=== PATIENT | female | born 1955 | race Caucasian/White ===

== ENCOUNTER 2018-09-27 15:43 | Inpatient (IN) | payer MEDICARE, OTHER ==
[~2018-09-27] VITALS: Ht 167.6 cm; Wt 108.9 kg
[2018-09-27] MEDS ORDERED: aspirin 81mg tab.chew PO ONE (16:20)
[2018-09-27 16:25] LABS: BASOPHILS # (AUTO) 0.1 X10'3 (0-0.2); EOSINOPHILS # (AUTO) 0.2 X10'3 (0-0.9); EOSINOPHILS % (AUTO) 1.9 % (0-6); HEMATOCRIT 45.1 % (35.0-45.0); HEMOGLOBIN 15.5 g/dl (12.0-16.0); LYMPHOCYTES # (AUTO) 1.1 X10'3 (1.1-4.8); LYMPHOCYTES % (AUTO) 13.9 % (21-51); MEAN CORPUSCULAR HEMOGLOBIN 30.2 PG (27.0-31.0); MEAN CORPUSCULAR HGB CONC 34.3 g/dL (33.0-36.5); MEAN CORPUSCULAR VOLUME 88.2 FL (78-98); MEAN PLATELET VOLUME 6.3 FL (7.4-10.4); MONOCYTES # (AUTO) 0.6 X10'3 (0-0.9); MONOCYTES % (AUTO) 7.9 % (2-12); NEUTROPHILS % (AUTO) 75.3 % (42-75); PLATELET COUNT 362 X10'3 (140-440); RED BLOOD COUNT 5.12 X10'6 (4.20-5.60); RED CELL DISTRIBUTION WIDTH 13.3 % (11.5-14.5)
[2018-09-27] MEDS ORDERED: nitroGLYCERIN 0.4mg SUBLingual tab SL PRN ×3 (16:25→18:45)
--- NOTE | 2018-09-27 16:29 | NUR ---
pt stated hasnt taken synthroid or depression meds in the last few day and states "amanda been more focused on my heart medications lately"
[2018-09-27 16:42] LABS: ALANINE AMINOTRANSFERASE 22 U/L (12-78); ALBUMIN 3.5 G/DL (3.4-5.0); ALBUMIN/GLOBULIN RATIO 0.9 (1.1-1.5); ALKALINE PHOSPHATASE 48 IU/L (46-116); ANION GAP 8 (8-16); ASPARTATE AMINO TRANSFERASE 12 U/L (10-37); BILIRUBIN,TOTAL 0.4 MG/DL (0.1-1.0); BLOOD UREA NITROGEN 11 MG/DL (7-18); BUN/CREATININE RATIO 10.8 (6.6-38.0); CHLORIDE 98 MMOL/L (99-107); CREATININE 1.02 MG/DL (0.40-0.90); GLUCOSE 108 MG/DL (70-104); POTASSIUM 3.9 MMOL/L (3.5-5.1); SODIUM 133 MMOL/L (135-145); TOTAL CARBON DIOXIDE 27.4 MMOL/L (24-32); TOTAL PROTEIN 7.5 G/DL (6.4-8.2); eGFR 55 ML/MIN
[2018-09-27 16:46] LABS: PARTIAL THROMBOPLASTIN TIME 30 SECONDS (22-32)
--- NOTE | 2018-09-27 17:10 | NUR ---
BP 150/69 COMPLAINS OF LEFT ARM NUMBNESS AND TINGLING WITH CHEST PRESSURE "8". NITRO GIVEN.
[2018-09-27] MEDS ORDERED: magnesium hydroxide 30ml (MOM) UD suspension PO PRN (18:45)
[2018-09-27] MEDS ORDERED: regadenoson 0.4mg/5ml syringe IV PRN (18:45)
[2018-09-27] MEDS ORDERED: potassium Cl 20 mEq SR tablet PO PRN (18:45)
[2018-09-27] MEDS ORDERED: mag hydrox/Alum hydrox/simeth 30ml oral suspension PO PRN (18:45)
[2018-09-27] MEDS ORDERED: magnesium Cl slow-release 64mg tablet PO PRN (18:45)
[2018-09-27] MEDS ORDERED: magnesium 4gm in 100ml NS 100 ML IV PRN (18:45)
[2018-09-27] MEDS ORDERED: ondansetron/PF 4mg/2ml inj IV PRN (18:45)
[2018-09-27] MEDS ORDERED: acetaminophen 325mg tablet PO PRN ×2 (18:45)
[2018-09-27] MEDS: K and/or MAG REPLACEMENT MC SCH (18:45)
[2018-09-27] MEDS ORDERED: metoprolol tartrate 1mg/ml inj IV PRN (18:45)
[2018-09-27] MEDS ORDERED: diphenhydrAMINE 25mg capsule PO PRN (18:45)
[2018-09-27] MEDS ORDERED: potassium CL 10mEq/100ml bag 100 ML IV PRN ×2 (18:45)
[2018-09-27] MEDS ORDERED: magnesium 2GM in 50ml NS 50 ML IV PRN (18:45)
[2018-09-27] MEDS ORDERED: aminophylline 250mg/10ml inj. IV PRN (18:45)
[2018-09-27] MEDS: normal saline 1000ml 1,000 ML IV SCH ×2 (19:25→22:41)
--- NOTE | 2018-09-27 19:26 | NUR ---
PT RESTING COMFORTABLY IN BED, PT DENIED ANY NEEDS AT THIS TIME
--- NOTE | 2018-09-27 20:00 | NUR ---
PT REQUESTING NITRO DUE TO CHEST DISCOMFORT, PT ONLY HAS A HR OF 40, EXPLAINED TO PT THAT WITH HER HR BEING SO LOW SHE WOULD NOT BE GETTING NITRO. AFTER SPEAKING WITH DIRECTOR OF GOLF MALLY, FOUND OUT THAT AFTER PT WAS GIVEN NITRO EARLIER IN THE DAY PTS BP DROPPED TO 103.
[2018-09-27 20:38] VITALS: BP 162/66
--- NOTE | 2018-09-27 20:49 | NUR ---
Patient in room MED 314. I have received report from Lisy ARAGON and had the opportunity to ask questions and assume patient care.
[2018-09-27] MEDS: heparin, porcine 5000 units/ml vial SQ SCH (21:00)
[2018-09-27] MEDS ORDERED: CLON1TAB12 (21:14)
[2018-09-27] MEDS ORDERED: BUPR300T7 PO (21:14)
[2018-09-27] MEDS ORDERED: PARO10TA4 (21:14)
[2018-09-27] MEDS ORDERED: HYDR25TA4 PO (21:14)
[2018-09-27] MEDS ORDERED: TRAZ-219 PO (21:14)
[2018-09-27] MEDS ORDERED: CLON-371 PO (21:14)
[2018-09-27] MEDS ORDERED: METO100T14 PO (21:14)
[2018-09-27] MEDS ORDERED: LEVO100T9 PO (21:14)
[2018-09-27] MEDS ORDERED: PARO20TA6 PO (21:14)
[2018-09-27] MEDS ORDERED: ZOLP10TA5 PO (21:14)
[2018-09-27] MEDS ORDERED: NORT25CA (21:14)
--- NOTE | 2018-09-27 21:30 | NUR ---
Notified night hospitalist about patient's current condition and complaints, fluctuating rhythms, and her heart rate going down to 36. He advised to hold all beta blockers and continue to monitor closely.
[2018-09-27 22:00] VITALS: BP 161/63
[2018-09-27 22:24] LABS: HEMOGLOBIN A1C 5.4 % (4.5-6.2)
[2018-09-28] VITALS (17 sets, daily range): BP systolic 113–179; BP diastolic 50–81
--- NOTE | 2018-09-28 01:44 | NUR ---
Dr. Jackson came up to the unit and reviewed the patient's chart and ECG. He is aware of the prolonged QT interval and explained that trazodone can cause this. Also discussed that the patient was wanting to leave AMA. Patient education was given on her home meds, bradycardia, and holding the nitro. Will let him know if she asks to leave AMA again.
[2018-09-28] MEDS ORDERED: clonazePAM 1mg tablet PO ONE (03:25)
--- NOTE | 2018-09-28 03:27 | NUR ---
patient was complaining of a headache, no relief with Tylenol. States she's had this before from not taking clonazepam. Dr. Jackson ordered a 1 time dose of 1mg Clonazepam.
[2018-09-28 05:49] LABS: BASOPHILS # (AUTO) 0.1 X10'3 (0-0.2); EOSINOPHILS # (AUTO) 0.1 X10'3 (0-0.9); EOSINOPHILS % (AUTO) 2.6 % (0-6); HEMATOCRIT 39.6 % (35.0-45.0); HEMOGLOBIN 13.7 g/dl (12.0-16.0); LYMPHOCYTES # (AUTO) 1.4 X10'3 (1.1-4.8); LYMPHOCYTES % (AUTO) 24.6 % (21-51); MEAN CORPUSCULAR HEMOGLOBIN 30.4 PG (27.0-31.0); MEAN CORPUSCULAR HGB CONC 34.6 g/dL (33.0-36.5); MEAN CORPUSCULAR VOLUME 87.9 FL (78-98); MEAN PLATELET VOLUME 6.8 FL (7.4-10.4); MONOCYTES # (AUTO) 0.5 X10'3 (0-0.9); MONOCYTES % (AUTO) 9.7 % (2-12); NEUTROPHILS # (AUTO) 3.5 X10'3 (1.8-7.7); NEUTROPHILS % (AUTO) 62.1 % (42-75); PLATELET COUNT 280 X10'3 (140-440); RED BLOOD COUNT 4.51 X10'6 (4.20-5.60); RED CELL DISTRIBUTION WIDTH 13.3 % (11.5-14.5); WHITE BLOOD COUNT 5.6 X10'3 (4.5-11.0)
[2018-09-28 05:59] LABS: ALANINE AMINOTRANSFERASE 20 U/L (12-78); ALBUMIN/GLOBULIN RATIO 0.9 (1.1-1.5); ALKALINE PHOSPHATASE 40 IU/L (46-116); ANION GAP 10 (8-16); ASPARTATE AMINO TRANSFERASE 9 U/L (10-37); BILIRUBIN,TOTAL 0.4 MG/DL (0.1-1.0); BLOOD UREA NITROGEN 8 MG/DL (7-18); CALCIUM 8.1 MG/DL (8.5-10.1); CHLORIDE 104 MMOL/L (99-107); GLUCOSE 80 MG/DL (70-104); POTASSIUM 3.2 MMOL/L (3.5-5.1); SODIUM 138 MMOL/L (135-145); TOTAL CARBON DIOXIDE 24.1 MMOL/L (24-32); TOTAL PROTEIN 6.3 G/DL (6.4-8.2); eGFR 72 ML/MIN
[2018-09-28 06:03] LABS: CHOL/HDL RATIO 4.7 (0.00-4.99); CHOLESTEROL 202 MG/DL (0-200); HDL CHOLESTEROL 43 MG/DL (35-60); LDL CHOLESTEROL 138 MG/DL (50-100); PHOSPHORUS 2.6 MG/DL (2.3-4.5); TRIGLYCERIDES 89 MG/DL (20-135)
--- NOTE | 2018-09-28 06:22 | NUR ---
Problems reprioritized. Patient report given, questions answered & plan of care reviewed with Asuncion/Kelly RNs.
--- NOTE | 2018-09-28 06:34 | NUR ---
Patient in room MED 314. I have received report from Aleksander ARAGON and had the opportunity to ask questions and assume patient care.
--- NOTE | 2018-09-28 07:38 | NUR ---
PAGED FOR MED REC "Re: Carolina Earl in 314. CAN YOU PLEASE COMPLETE MEDICATION RECONCILIATION. THANK YOU, OPAL TORRES [phone]"
[2018-09-28] MEDS ORDERED: metoprolol tartrate 50mg tablet PO SCH ×2 (08:00→13:30)
[2018-09-28] MEDS: HYDROchlorothiazide 25mg tablet PO SCH (08:00)
--- NOTE | 2018-09-28 10:30 | NUR ---
Patient arrived back from [facility]. Nurses aid informed this nurse that patient is refusing to change her soiled clothes, will continue to try to perform hygiene care.
--- NOTE | 2018-09-28 11:07 | NUR ---
paged for pain medicine Dr. Gillis- "Re: 314 is in 08/23 pain. can you order something? only Tylenol ordered. thank you, Asuncion TORRES [phone]"
[2018-09-28] MEDS: potassium Cl 20 mEq SR tablet PO PRN ×3 (11:09→20:33)
[2018-09-28] MEDS: K and/or MAG REPLACEMENT MC SCH (11:10)
[2018-09-28] MEDS: levoTHYROXINE 100mcg tablet PO SCH (11:11)
[2018-09-28] MEDS: clonazePAM 1mg tablet PO SCH ×2 (11:11→20:32)
[2018-09-28] MEDS: PARoxetine 20mg tablet PO SCH (11:11)
[2018-09-28] MEDS: heparin, porcine 5000 units/ml vial SQ SCH ×2 (11:15→20:34)
[2018-09-28] MEDS ORDERED: HYDROcodone/acetaminophen 5mg/325mg tablet PO PRN ×2 (12:05→12:15)
--- NOTE | 2018-09-28 12:19 | NUR ---
Bonnie alvarez, "Kelly [phone]- Carolina Lindsey Rm:[id number] Could we order Nystatin power for yeast under breast?"
--- NOTE | 2018-09-28 13:00 | NUR ---
PAGED TO CLARIFY IF METOPROLOL NEEDS ADJUSTING PAGED DR. PETERSON TO PLEASE CALL [facility] @ [phone]
--- NOTE | 2018-09-28 13:25 | NUR ---
DR. PETERSON CALLED BACK ORDERS FOR NYSTATIN POWDER UNDER BREASTS AND PANNUS ORDERS TO CHANGE METOPROLOL TARTRATE TO 25MG PO BID FROM 100MG TID. AWARE OF HR 66.
[2018-09-28] MEDS ORDERED: hydrALAZINE 25 MG tablet PO PRN (15:05)
--- NOTE | 2018-09-28 18:00 | NUR ---
Patient in room MED 314. I have received report from MAHESH Roland, and had the opportunity to ask questions and assume patient care.
[2018-09-28] MEDS: buPROPion SR 150mg tablet PO SCH (20:33)
[2018-09-28] MEDS: nystatin 15 GM powder TP SCH (20:37)
[2018-09-29 02:00] VITALS: BP 130/59
[2018-09-29 05:50] LABS: ALANINE AMINOTRANSFERASE 19 U/L (12-78); ALBUMIN 2.9 G/DL (3.4-5.0); ALBUMIN/GLOBULIN RATIO 0.9 (1.1-1.5); ALKALINE PHOSPHATASE 38 IU/L (46-116); ANION GAP 5 (8-16); ASPARTATE AMINO TRANSFERASE 11 U/L (10-37); BASOPHILS % (AUTO) 0.9 % (0-1); BILIRUBIN,TOTAL 0.3 MG/DL (0.1-1.0); BLOOD UREA NITROGEN 5 MG/DL (7-18); BUN/CREATININE RATIO 5.8 (6.6-38.0); CALCIUM 8.9 MG/DL (8.5-10.1); CHLORIDE 108 MMOL/L (99-107); CREATININE 0.86 MG/DL (0.40-0.90); EOSINOPHILS # (AUTO) 0.2 X10'3 (0-0.9); EOSINOPHILS % (AUTO) 4.4 % (0-6); GLUCOSE 91 MG/DL (70-104); HEMATOCRIT 39.5 % (35.0-45.0); HEMOGLOBIN 13.7 g/dl (12.0-16.0); LYMPHOCYTES # (AUTO) 1.4 X10'3 (1.1-4.8); LYMPHOCYTES % (AUTO) 27.5 % (21-51); MAGNESIUM 2.2 MG/DL (1.5-2.4); MEAN CORPUSCULAR HEMOGLOBIN 30.3 PG (27.0-31.0); MEAN CORPUSCULAR HGB CONC 34.6 g/dL (33.0-36.5); MEAN CORPUSCULAR VOLUME 87.4 FL (78-98); MEAN PLATELET VOLUME 6.2 FL (7.4-10.4); MONOCYTES # (AUTO) 0.6 X10'3 (0-0.9); MONOCYTES % (AUTO) 12.5 % (2-12); NEUTROPHILS # (AUTO) 2.7 X10'3 (1.8-7.7); NEUTROPHILS % (AUTO) 54.7 % (42-75); PHOSPHORUS 2.9 MG/DL (2.3-4.5); PLATELET COUNT 264 X10'3 (140-440); POTASSIUM 4.7 MMOL/L (3.5-5.1); RED BLOOD COUNT 4.52 X10'6 (4.20-5.60); RED CELL DISTRIBUTION WIDTH 13.5 % (11.5-14.5); SODIUM 139 MMOL/L (135-145); TOTAL CARBON DIOXIDE 26.4 MMOL/L (24-32); TOTAL PROTEIN 6.2 G/DL (6.4-8.2); eGFR 67 ML/MIN
[2018-09-29 06:00] VITALS: BP 137/64
--- NOTE | 2018-09-29 06:00 | NUR ---
Problems reprioritized. Patient report given, questions answered & plan of care reviewed with MAHESH Jose.
--- NOTE | 2018-09-29 06:34 | NUR ---
Patient in room MED 314. I have received report from Lacie ARAGON and had the opportunity to ask questions and assume patient care.
[2018-09-29] MEDS: HYDROchlorothiazide 25mg tablet PO SCH (08:00)
[2018-09-29] MEDS: K and/or MAG REPLACEMENT MC SCH (08:00)
[2018-09-29] MEDS: levoTHYROXINE 100mcg tablet PO SCH (08:48)
[2018-09-29] MEDS: buPROPion SR 150mg tablet PO SCH (08:48)
[2018-09-29] MEDS: PARoxetine 20mg tablet PO SCH (08:49)
[2018-09-29] MEDS: heparin, porcine 5000 units/ml vial SQ SCH (08:49)
[2018-09-29] MEDS: clonazePAM 1mg tablet PO SCH (08:49)
[2018-09-29] MEDS: nystatin 15 GM powder TP SCH ×2 (08:50→12:31)
[2018-09-29 08:54] VITALS: BP 150/67
[2018-09-29] MEDS ORDERED: AMLO5TAB4 PO (10:45)
[2018-09-29 11:00] VITALS: BP 141/68
--- NOTE | 2018-09-29 13:03 | NUR ---
Patient was discharged in stable condition by Dr Gillis. All discharge paperwork and instructions were reviewed with the patient, she had no further questions at this time. Her IV was removed with the catheter tip intact, there was minimal bleeding, and clean gauze and were applied. Her new prescriptions were delivered via [facility]. Patient's daughter stated that she had a follow up appointment arranged with Dr Ramirez office, but it is not available until the fall. Patient was escorted out of the hospital via wheelchair accompanied by her daughter.
== END 2018-09-29 12:45 | disposition home or self-care (01) | DRG 309 ==
LOC: ER 15:43 → MED 3N 20:38 → CMPBEDREQ 21:49
PROVIDERS: ADMIT Family Medicine; ATTEND Hospitalist
PROC: 4A02XM4 Measurement of Cardiac Total Activity, External Approach (ICD-10-PCS; principal; 2018-09-28)
PROC: 3E033HZ Introduction of Radioactive Substance into Peripheral Vein, Percutaneous Approach (ICD-10-PCS; 2018-09-28)
DX: R00.1 Bradycardia, unspecified (principal); Z68.41 Body mass index [BMI] 40.0-44.9, adult; E87.1 Hypo-osmolality and hyponatremia; T44.7X5A Adverse effect of beta-adrenoreceptor antagonists, initial encounter; I10 Essential (primary) hypertension; E66.01 Morbid (severe) obesity due to excess calories; F41.9 Anxiety disorder, unspecified; E03.9 Hypothyroidism, unspecified; F32.9 Major depressive disorder, single episode, unspecified; G40.909 Epilepsy, unspecified, not intractable, without status epilepticus; Z82.3 Family history of stroke; Z68.38 Body mass index [BMI] 38.0-38.9, adult; Z85.038 Personal history of other malignant neoplasm of large intestine; Z87.891 Personal history of nicotine dependence; Z90.49 Acquired absence of other specified parts of digestive tract; Z79.890 Hormone replacement therapy; Z79.899 Other long term (current) drug therapy; Z82.49 Family history of ischemic heart disease and other diseases of the circulatory system; Y92.89 Other specified places as the place of occurrence of the external cause
CPT/HCPCS: 36415; 70450; 71045; 78452; 80053; 80061; 83036; 83735; 83880; 84100; 84443; 84484; 85025; 85610; 85730; 87081; 93005; 93017; 93306; 99285; A9500; G0378; J0280; J1644; J2405; J2785; J7030

== ENCOUNTER 2019-01-25 10:24 | Emergency (ER) | payer MEDICARE ==
[~2019-01-25] VITALS: Ht 167.6 cm; Wt 100.0 kg
[~2019-01-25 10:24] MED LIST: AMLO5TAB4 PO; BUPR300T7 PO; CLON-371 PO; HYDR25TA4 PO; LEVO100T9 PO; PARO20TA6 PO
[2019-01-25] MEDS ORDERED: ibuprofen tablet 400 MG TABLET PO ONE (11:45)
[2019-01-25] MEDS ORDERED: ibuprofen 200mg tablet PO ONE (11:55)
[2019-01-25 12:06] LABS: BASOPHILS # (AUTO) 0.1 X10'3 (0-0.2); BASOPHILS % (AUTO) 1.3 % (0-1); EOSINOPHILS # (AUTO) 0.1 X10'3 (0-0.9); EOSINOPHILS % (AUTO) 0.7 % (0-6); HEMATOCRIT 44.7 % (35.0-45.0); HEMOGLOBIN 15.8 g/dl (12.0-16.0); LYMPHOCYTES # (AUTO) 1.4 X10'3 (1.1-4.8); LYMPHOCYTES % (AUTO) 18.2 % (21-51); MEAN CORPUSCULAR HEMOGLOBIN 30.6 PG (27.0-31.0); MEAN CORPUSCULAR HGB CONC 35.5 g/dL (33.0-36.5); MEAN CORPUSCULAR VOLUME 86.3 FL (78-98); MEAN PLATELET VOLUME 6.1 FL (7.4-10.4); MONOCYTES # (AUTO) 0.9 X10'3 (0-0.9); MONOCYTES % (AUTO) 11.3 % (2-12); NEUTROPHILS # (AUTO) 5.4 X10'3 (1.8-7.7); NEUTROPHILS % (AUTO) 68.5 % (42-75); PLATELET COUNT 397 X10'3 (140-440); RED BLOOD COUNT 5.18 X10'6 (4.20-5.60); RED CELL DISTRIBUTION WIDTH 13.8 % (11.5-14.5); WHITE BLOOD COUNT 7.9 X10'3 (4.5-11.0)
[2019-01-25] MEDS ORDERED: ondansetron 4mg rapidly disintigrating tab PO ONE (12:10)
[2019-01-25 12:20] LABS: ALANINE AMINOTRANSFERASE 28 U/L (12-78); ALKALINE PHOSPHATASE 54 IU/L (46-116); ANION GAP 10 (8-16); ASPARTATE AMINO TRANSFERASE 15 U/L (10-37); BILIRUBIN,TOTAL 0.4 MG/DL (0.1-1.0); BLOOD UREA NITROGEN 8 MG/DL (7-18); BUN/CREATININE RATIO 8.2 (6.6-38.0); CALCIUM 9.6 MG/DL (8.5-10.1); CHLORIDE 94 MMOL/L (99-107); CREATININE 0.98 MG/DL (0.40-0.90); GLUCOSE 93 MG/DL (70-104); MAGNESIUM 2.1 MG/DL (1.5-2.4); SODIUM 132 MMOL/L (135-145); TOTAL CARBON DIOXIDE 28.1 MMOL/L (24-32); eGFR 57 ML/MIN
[2019-01-25 12:24] LABS: POTASSIUM 2.9 MMOL/L (3.5-5.1)
[2019-01-25] MEDS ORDERED: potassium Cl 20 mEq SR tablet PO STA (12:28)
[2019-01-25] MEDS ORDERED: POTA20TA19 PO (12:29)
--- NOTE | 2019-01-25 12:59 | NUR ---
[facility] CALLED AND WILL BE RIGHT OVER.
[2019-01-25 13:04] VITALS: BP 148/95
== END 2019-01-25 13:07 | disposition home or self-care (01) ==
LOC: ER 10:24
DX: R03.0 Elevated blood-pressure reading, without diagnosis of hypertension (principal); E87.6 Hypokalemia; F41.9 Anxiety disorder, unspecified; F32.9 Major depressive disorder, single episode, unspecified; Z79.899 Other long term (current) drug therapy
CPT/HCPCS: 36415; 71045; 80053; 83735; 84484; 85025; 93005; 99284

== ENCOUNTER 2019-03-20 01:26 | Observation (INO) | payer MEDICARE, OTHER ==
[~2019-03-20] VITALS: Ht 167.6 cm; Wt 94.3 kg
--- NOTE | 2019-03-20 02:08 | NUR ---
After talking to Dr. Zelaya the patiet relates to me that she knows she is not having a heart attack and that her problem is related to anxiety and depression. Patient denies SI.
[2019-03-20 02:29] LABS: BASOPHILS # (AUTO) 0.1 X10'3 (0-0.2); BASOPHILS % (AUTO) 1.1 % (0-1); EOSINOPHILS # (AUTO) 0.1 X10'3 (0-0.9); EOSINOPHILS % (AUTO) 1.5 % (0-6); HEMATOCRIT 40.5 % (35.0-45.0); HEMOGLOBIN 14.1 g/dl (12.0-16.0); LYMPHOCYTES # (AUTO) 1.4 X10'3 (1.1-4.8); LYMPHOCYTES % (AUTO) 32.4 % (21-51); MEAN CORPUSCULAR HEMOGLOBIN 30.2 PG (27.0-31.0); MEAN CORPUSCULAR HGB CONC 34.9 g/dL (33.0-36.5); MEAN CORPUSCULAR VOLUME 86.6 FL (78-98); MEAN PLATELET VOLUME 6.2 FL (7.4-10.4); MONOCYTES # (AUTO) 0.5 X10'3 (0-0.9); MONOCYTES % (AUTO) 12.4 % (2-12); NEUTROPHILS # (AUTO) 2.3 X10'3 (1.8-7.7); NEUTROPHILS % (AUTO) 52.6 % (42-75); PLATELET COUNT 369 X10'3 (140-440); RED BLOOD COUNT 4.68 X10'6 (4.20-5.60); RED CELL DISTRIBUTION WIDTH 15.1 % (11.5-14.5); WHITE BLOOD COUNT 4.4 X10'3 (4.5-11.0)
[2019-03-20 02:36] LABS: ALANINE AMINOTRANSFERASE 29 U/L (12-78); ALBUMIN 3.5 G/DL (3.4-5.0); ALBUMIN/GLOBULIN RATIO 1.1 (1.1-1.5); ALKALINE PHOSPHATASE 40 IU/L (46-116); ANION GAP 7 (8-16); ASPARTATE AMINO TRANSFERASE 25 U/L (10-37); BILIRUBIN,TOTAL 0.4 MG/DL (0.1-1.0); BLOOD UREA NITROGEN 5 MG/DL (7-18); BUN/CREATININE RATIO 6.2 (6.6-38.0); CALCIUM 9.6 MG/DL (8.5-10.1); CHLORIDE 90 MMOL/L (99-107); CREATININE 0.81 MG/DL (0.40-0.90); GLUCOSE 115 MG/DL (70-104); SODIUM 128 MMOL/L (135-145); TOTAL CARBON DIOXIDE 30.7 MMOL/L (24-32); TOTAL PROTEIN 6.6 G/DL (6.4-8.2); eGFR 71 ML/MIN
[2019-03-20 02:41] LABS: POTASSIUM 2.3 MMOL/L (3.5-5.1)
[2019-03-20] MEDS ORDERED: potassium Cl 10 mEq/100mL bag IV ONE (02:45)
--- NOTE | 2019-03-20 03:39 | NUR ---
PATIENT COMPLAINS OF BURNING WITH ADMINISTRATION OF IV POTASSIUM. SLOWED RATE TO 50ML/HR.
[2019-03-20] MEDS ORDERED: ondansetron/PF 4mg/2ml inj IV PRN (04:25)
[2019-03-20] MEDS ORDERED: potassium CL 10mEq/100ml bag 100 ML IV PRN ×2 (04:25)
[2019-03-20] MEDS ORDERED: acetaminophen 325mg tablet PO PRN (04:25)
[2019-03-20] MEDS ORDERED: mag hydrox/Alum hydrox/simeth 30ml oral suspension PO PRN (04:25)
[2019-03-20] MEDS ORDERED: magnesium Cl slow-release 64mg tablet PO PRN (04:25)
[2019-03-20] MEDS ORDERED: magnesium 4gm in 100ml NS 100 ML IV PRN (04:25)
[2019-03-20] MEDS ORDERED: magnesium 2GM in 50ml NS 50 ML IV PRN (04:25)
[2019-03-20] MEDS ORDERED: magnesium hydroxide 30ml (MOM) UD suspension PO PRN (04:25)
[2019-03-20] MEDS ORDERED: potassium Cl 20 mEq SR tablet PO PRN (04:25)
--- NOTE | 2019-03-20 04:52 | NUR ---
RECEIVED REPORT FROM CESAR ARAGON. ROOM READY, AWAITING PATIENT ARRIVAL
--- NOTE | 2019-03-20 05:15 | NUR ---
PATIENT ARRIVED TO FLOOR VIA GURNEY. AMBULATED TO BED. ORIENTED TO ROOM AND UNIT. CALL LIGHT WITHIN REACH. PATIENT C/O BURNING WHERE IV POTASSIUM WAS RUNNING. ICE PACK GIVEN TO HELP WITH BURNING.
--- NOTE | 2019-03-20 05:30 | NUR ---
DR. PETERSON AT BEDSIDE. RELAYED TO HIM THAT PATIENT'S IV POTASSIUM IS BURNING AND IF WE COULD START HER ON PO REPLACEMENT PER PROTOCOL. DR. PETERSON SAID TO REPLACE PO AND ALSO ORDERED IV MAG. MAGNESIUM LAB TEST ADDED TO ORDERS. 1ST DOSE PO POTASSIUM REPLACEMENT GIVEN ORDERED.
[2019-03-20] MEDS ORDERED: magnesium 2GM in 50ml NS 50 ML IV ONE (05:35)
[2019-03-20] MEDS: potassium Cl 20 mEq SR tablet PO PRN ×4 (05:37→20:38)
[2019-03-20 05:50] VITALS: BP 138/57
[2019-03-20 06:00] VITALS: BP 138/62
--- NOTE | 2019-03-20 06:10 | NUR ---
REPORT GIVEN TO MAHESH MORALEZ. ALL QUESTIONS ANSWERED. PATIENT RESTING COMFORTABLY IN BED AT THIS TIME.
--- NOTE | 2019-03-20 06:10 | NUR ---
Patient in room MED 310. I have received report from guido Wright and had the opportunity to ask questions and assume patient care.
[2019-03-20 06:42] LABS: MAGNESIUM 1.8 MG/DL (1.5-2.4)
[2019-03-20] MEDS: metoprolol tartrate 12.5mg (1/2 tablet) PO SCH ×2 (08:00→20:00)
[2019-03-20] MEDS: levoTHYROXINE 100mcg tablet PO SCH (08:42)
[2019-03-20] MEDS: clonazePAM 1mg tablet PO SCH ×2 (08:44→20:37)
[2019-03-20] MEDS: aspirin 81mg tablet.DR PO SCH (08:44)
[2019-03-20] MEDS: HYDROchlorothiazide 25mg tablet PO SCH (08:45)
[2019-03-20] MEDS: K and/or MAG REPLACEMENT MC SCH ×2 (08:48→20:51)
[2019-03-20] MEDS: enoxaparin 40mg/0.4ml syringe SQ SCH (08:48)
[2019-03-20 11:00] VITALS: BP 114/56
[2019-03-20 15:00] VITALS: BP 130/67
[2019-03-20] MEDS: normal saline 1000ml 1,000 ML IV SCH (15:40)
[2019-03-20 18:00] VITALS: BP 149/73
--- NOTE | 2019-03-20 18:00 | NUR ---
Patient in room MED 310. I have received report from Sera ARAGON and had the opportunity to ask questions and assume patient care.
--- NOTE | 2019-03-20 20:00 | NUR ---
PATIENT REFUSED METOPROLOL, STATED "DR. HARRIS ADDED IT TO MY MEDICATION LIST, BUT IT'S NOT RIGHT, i HAVE A BAD REACTION TO IT". DISCUSSED PATIENTS HYPERTENSION, CALLED [facility] TO GET A NEW ORDER FOR ALTERNATIVE MEDICATION, ADDITIONALLY A MEDICATION FOR PATIENT'S ONGOING ANXIETY/PSYCH ISSUES. NO NEW ORDERS WERE GIVEN. [facility] STATED TO CALL HER IF SYSTOLIC BP WAS ABOVE 160 FOR PRN HTN MED
[2019-03-20] MEDS: acetaminophen 325mg tablet PO PRN (20:52)
[2019-03-20 22:00] VITALS: BP 132/69
[2019-03-21 02:00] VITALS: BP 130/76
[2019-03-21] MEDS: acetaminophen 325mg tablet PO PRN ×2 (02:24→09:17)
[2019-03-21 05:42] LABS: BASOPHILS # (AUTO) 0.1 X10'3 (0-0.2); BASOPHILS % (AUTO) 1.8 % (0-1); EOSINOPHILS # (AUTO) 0.1 X10'3 (0-0.9); EOSINOPHILS % (AUTO) 2.4 % (0-6); HEMOGLOBIN 13.7 g/dl (12.0-16.0); LYMPHOCYTES # (AUTO) 1.4 X10'3 (1.1-4.8); LYMPHOCYTES % (AUTO) 35.7 % (21-51); MEAN CORPUSCULAR HEMOGLOBIN 29.8 PG (27.0-31.0); MEAN CORPUSCULAR HGB CONC 34.2 g/dL (33.0-36.5); MEAN CORPUSCULAR VOLUME 87.1 FL (78-98); MEAN PLATELET VOLUME 6.1 FL (7.4-10.4); MONOCYTES # (AUTO) 0.5 X10'3 (0-0.9); MONOCYTES % (AUTO) 13.4 % (2-12); NEUTROPHILS # (AUTO) 1.8 X10'3 (1.8-7.7); NEUTROPHILS % (AUTO) 46.7 % (42-75); PLATELET COUNT 365 X10'3 (140-440); RED CELL DISTRIBUTION WIDTH 15.3 % (11.5-14.5); WHITE BLOOD COUNT 3.9 X10'3 (4.5-11.0)
[2019-03-21 06:01] LABS: ALBUMIN 3.2 G/DL (3.4-5.0); ANION GAP 4 (8-16); BLOOD UREA NITROGEN 3 MG/DL (7-18); CALCIUM 9.3 MG/DL (8.5-10.1); CHLORIDE 98 MMOL/L (99-107); CREATININE 0.75 MG/DL (0.40-0.90); GLUCOSE 98 MG/DL (70-104); POTASSIUM 3.8 MMOL/L (3.5-5.1); SODIUM 132 MMOL/L (135-145); TOTAL CARBON DIOXIDE 29.8 MMOL/L (24-32); eGFR 78 ML/MIN
[2019-03-21 06:30] VITALS: BP 154/72
[2019-03-21] MEDS: normal saline 1000ml 1,000 ML IV SCH (06:33)
--- NOTE | 2019-03-21 06:42 | NUR ---
Problems reprioritized. Patient report given, questions answered & plan of care reviewed with cele lora.
[2019-03-21] MEDS: K and/or MAG REPLACEMENT MC SCH (08:00)
[2019-03-21] MEDS: metoprolol tartrate 12.5mg (1/2 tablet) PO SCH (08:00)
--- NOTE | 2019-03-21 08:09 | NUR ---
PAGED HOSP, "KELLY [phone]- PLEASE CALL [facility] RE: [phone], IN ACTIVE CHEST PAIN, RECEIVED MORPHINE, MAY SHE GO TO NUC MED WITH ACTIVE C.P?" AWAITING ON FURTHER DIRECTION FROM . Addendum: 03/21/19 at 0931 by Kelly Nunez RN WRONG PATIENT CHART-KB
--- NOTE | 2019-03-21 08:15 | NUR ---
RECEIVED CALL BACK, DOMINIC GAVE OKAY FOR PATIENT TO CONTINUE WITH LEXISCAN. Addendum: 03/21/19 at 0930 by Kelly Nunez RN WRONG PATIENT CHART-KB
[2019-03-21] MEDS: levoTHYROXINE 100mcg tablet PO SCH (08:41)
[2019-03-21] MEDS: HYDROchlorothiazide 25mg tablet PO SCH (08:41)
[2019-03-21] MEDS: aspirin 81mg tablet.DR PO SCH (08:41)
[2019-03-21] MEDS: clonazePAM 1mg tablet PO SCH (08:41)
[2019-03-21] MEDS: enoxaparin 40mg/0.4ml syringe SQ SCH (08:42)
[2019-03-21] MEDS ORDERED: LORazepam 0.5 MG tablet PO ONE (10:05)
[2019-03-21] MEDS ORDERED: CLON-371 PO (10:42)
[2019-03-21] MEDS ORDERED: CLON-527 PO (11:23)
--- NOTE | 2019-03-21 13:20 | NUR ---
DISCUSSED DISCHARGE INSTRUCTIONS WITH PATIENT, VERBALIZED UNDERSTANDING. QUESTIONS ANSWERED. IV REMOVED WITH [facility] INTACT, TELE DC'D. [facility]AGER TO GO HOME. FREQUENCY CHANGE TO HOME MEDICATION FOR CLONAZEPAM PO TID. 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 ESCORTED OUT VIA W/C WITHOUT EVENT TO [employer]. [employer] [facility] TO TRANSPORT HER TO [facility]ARM[facility] AND TO HER HOME. SHE WAS ON THE PHONE CALLING HER SON TO MEET HER AT HER HOUSE WITH HOUSE KEYS. Addendum: 03/21/19 at 1439 by Kelly Nunez RN INCORRECT TIME, DISCHARGED AT 1400.
--- NOTE | 2019-03-21 14:00 | NUR ---
DISCUSSED DISCHARGE INSTRUCTIONS WITH PATIENT, VERBALIZED UNDERSTANDING. QUESTIONS ANSWERED. IV REMOVED WITH [facility]ATH[facility]ON INTACT, TELE DC'D. EAGER TO GO HOME. FREQUENCY CHANGE TO HOME MEDICATION FOR CLONAZEPAM PO TID. 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 ESCORTED OUT VIA W/C WITHOUT EVENT TO [employer] [facility] TO TRANSPORT HER TO [facility] AND TO HER HOME. SHE WAS ON THE PHONE CALLING HER SON TO MEET HER AT HER HOUSE WITH HOUSE KEYS.
--- NOTE | 2019-03-23 13:33 | NUR ---
Case Management DC follow up: spoke to pt via telephone. reported feeling same as she did when came to ER recently 03/20/19. Denies SOB, resp distress, emergent pain , cp, abd pain, BRICEÑO. states she feels nauseated, dizzy, unsteady and has had some diarrhea. pt feels it is the Rx diuretic. pt son is there and taking pt to walk in clinic. pt states she will call [facility] today to follow up on establishing PCP, paperwork was filled out and supposed to have been sent. pt verbalized understanding that PCP must be established before able to provide approved HHS. Reiterated w/pt several times, had pt verbally repeated back steps needed after hanging up the phone. Understands meds and why prescribed, does not understand why she was not Rx replacements for low electrolytes. Pt agreed this till be addressed w/walk in clinic Dr today. pt verbalizes understanding of s/s that would warrant 9-11/ER visit for evaluation, but has chosen to go to walk in clinic instead of ER again for the same issues. needs met, questions charted as answered at DC, no further questions at this time
== END 2019-03-21 14:00 | disposition home health service (06) ==
LOC: ER 01:27 → ED HOLD 04:32 → EDBEDREQ 04:40 → CMPBEDREQ 05:15 → MED 3N 05:16
PROVIDERS: ADMIT Hospitalist; ATTEND Family Medicine
DX: R07.89 Other chest pain (principal); E87.6 Hypokalemia; E03.9 Hypothyroidism, unspecified; E87.1 Hypo-osmolality and hyponatremia; F41.9 Anxiety disorder, unspecified; F32.9 Major depressive disorder, single episode, unspecified; I10 Essential (primary) hypertension; Z79.899 Other long term (current) drug therapy
CPT/HCPCS: 36415; 71045; 80048; 80053; 83735; 84132; 84443; 84484; 85025; 87081; 93005; 96365; 96366; 96372; 96375; 99284; G0378; J3475; J3480; J7030; J1650

== ENCOUNTER 2019-03-23 15:01 | Emergency (ER) | payer MEDICARE, OTHER ==
[~2019-03-23] VITALS: Ht 167.6 cm; Wt 86.4 kg
[~2019-03-23 15:01] MED LIST changes: -AMLO5TAB4 PO; -BUPR300T7 PO; -CLON-371 PO; +CLON-527 PO; -PARO20TA6 PO
[2019-03-23 15:59] LABS: BASOPHILS % (AUTO) 0.7 % (0-1); EOSINOPHILS # (AUTO) 0.1 X10'3 (0-0.9); EOSINOPHILS % (AUTO) 0.8 % (0-6); HEMATOCRIT 43.1 % (35.0-45.0); HEMOGLOBIN 14.8 g/dl (12.0-16.0); LYMPHOCYTES # (AUTO) 0.9 X10'3 (1.1-4.8); MEAN CORPUSCULAR HEMOGLOBIN 29.9 PG (27.0-31.0); MEAN CORPUSCULAR HGB CONC 34.3 g/dL (33.0-36.5); MEAN CORPUSCULAR VOLUME 86.9 FL (78-98); MEAN PLATELET VOLUME 6.1 FL (7.4-10.4); MONOCYTES # (AUTO) 0.5 X10'3 (0-0.9); MONOCYTES % (AUTO) 8.3 % (2-12); NEUTROPHILS % (AUTO) 76.2 % (42-75); PLATELET COUNT 436 X10'3 (140-440); RED BLOOD COUNT 4.96 X10'6 (4.20-5.60); RED CELL DISTRIBUTION WIDTH 15.7 % (11.5-14.5); WHITE BLOOD COUNT 6.6 X10'3 (4.5-11.0)
[2019-03-23 16:10] LABS: PARTIAL THROMBOPLASTIN TIME 27 SECONDS (22-32)
[2019-03-23 16:12] LABS: ALANINE AMINOTRANSFERASE 54 U/L (12-78); ALBUMIN 3.7 G/DL (3.4-5.0); ALBUMIN/GLOBULIN RATIO 1.1 (1.1-1.5); ALKALINE PHOSPHATASE 42 IU/L (46-116); ANION GAP 7 (8-16); ASPARTATE AMINO TRANSFERASE 33 U/L (10-37); BILIRUBIN,TOTAL 0.4 MG/DL (0.1-1.0); BLOOD UREA NITROGEN 6 MG/DL (7-18); BUN/CREATININE RATIO 7.3 (6.6-38.0); CALCIUM 9.4 MG/DL (8.5-10.1); CHLORIDE 97 MMOL/L (99-107); CREATININE 0.82 MG/DL (0.40-0.90); GLUCOSE 113 MG/DL (70-104); POTASSIUM 3.3 MMOL/L (3.5-5.1); SODIUM 133 MMOL/L (135-145); TOTAL CARBON DIOXIDE 28.6 MMOL/L (24-32); TOTAL PROTEIN 7.1 G/DL (6.4-8.2); eGFR 70 ML/MIN
[2019-03-23] MEDS ORDERED: POTASSIUM BICARB 20meq eff tab 20 MEQ TABLET.EFF PO ONE (16:50)
[2019-03-23] MEDS ORDERED: normal saline 1000ML IV soln IVB ONE (16:50)
[2019-03-23 17:06] LABS: MAGNESIUM 1.8 MG/DL (1.5-2.4)
[2019-03-23 18:45] LABS: CLARITY,URINE CLEAR (Clear); COLOR,URINE YELLOW (Yellow); GLUCOSE, URINE NEGATIVE (Neg); KETONES,URINE TRACE mg/dl (Neg); LEUKOCYTE ESTERASE ,URINE NEGATIVE (Neg); NITRITES, URINE NEGATIVE (Neg); OCCULT BLOOD,URINE NEGATIVE (Neg); PROTEIN,URINE NEGATIVE (Neg); UA COLLECTION TYPE CLN CATCH MIDSTREAM; UROBILINOGEN,URINE 0.2 E.U/dL (0.2-1.0)
[2019-03-23 19:17] VITALS: BP 130/104
== END 2019-03-23 19:19 | disposition home or self-care (01) ==
LOC: ER 15:01
DX: E87.6 Hypokalemia (principal); R42 Dizziness and giddiness; R53.1 Weakness; F41.9 Anxiety disorder, unspecified; F32.9 Major depressive disorder, single episode, unspecified; Z79.899 Other long term (current) drug therapy
CPT/HCPCS: 36415; 71045; 80053; 81003; 83735; 84484; 85025; 85610; 85730; 93005; 96360; 99284; J7030

== ENCOUNTER 2019-05-07 13:40 | Emergency (ER) | payer MEDICARE, OTHER ==
[~2019-05-07] VITALS: Ht 167.6 cm; Wt 77.8 kg
[~2019-05-07 13:40] MED LIST changes: +ASPI-1265 PO; +ATOR20TA66 PO; +CEFD300C3 PO; +CHOL200077 PO; +CLON-371 PO; -CLON-527 PO; +DIVA500T2 PO; +LEVE250T PO; -LEVO100T9 PO; +LEVO75TA7 PO; +MELA3TAB39 PO; +SERT50TA10 PO
--- NOTE | 2019-05-07 14:07 | NUR ---
Pt ambulated on her own from Triage to ED12. No SOB. Mild dizziness once in room. Pt answers questions appropriately thought cognitive processess appear slow. Son reports pt was started on several new psychotropic medications on dc ~ 1 wk ago. Pt presents as possible overly medicated, as witnessed by this RN while employed in a [employer].
[2019-05-07 14:31] LABS: BASOPHILS % (AUTO) 1.1 % (0-1); EOSINOPHILS % (AUTO) 1.4 % (0-6); HEMATOCRIT 45.7 % (35.0-45.0); LYMPHOCYTES # (AUTO) 1.3 X10'3 (1.1-4.8); LYMPHOCYTES % (AUTO) 35.3 % (21-51); MEAN CORPUSCULAR HEMOGLOBIN 30.9 PG (27.0-31.0); MEAN CORPUSCULAR HGB CONC 34.9 g/dL (33.0-36.5); MEAN CORPUSCULAR VOLUME 88.4 FL (78-98); MEAN PLATELET VOLUME 7.4 FL (7.4-10.4); MONOCYTES # (AUTO) 0.5 X10'3 (0-0.9); MONOCYTES % (AUTO) 15.1 % (2-12); NEUTROPHILS # (AUTO) 1.7 X10'3 (1.8-7.7); NEUTROPHILS % (AUTO) 47.1 % (42-75); PLATELET COUNT 230 X10'3 (140-440); RED BLOOD COUNT 5.17 X10'6 (4.20-5.60); RED CELL DISTRIBUTION WIDTH 15.2 % (11.5-14.5); WHITE BLOOD COUNT 3.6 X10'3 (4.5-11.0)
[2019-05-07] MEDS ORDERED: acetaminophen 325mg tablet PO ONE (14:35)
[2019-05-07 14:37] LABS: ALANINE AMINOTRANSFERASE 211 U/L (12-78); ALBUMIN/GLOBULIN RATIO 0.9 (1.1-1.5); ALKALINE PHOSPHATASE 76 IU/L (46-116); ANION GAP 12 (8-16); ASPARTATE AMINO TRANSFERASE 193 U/L (10-37); BILIRUBIN,TOTAL 0.5 MG/DL (0.1-1.0); BLOOD UREA NITROGEN 10 MG/DL (7-18); BUN/CREATININE RATIO 11.4 (6.6-38.0); CALCIUM 8.5 MG/DL (8.5-10.1); CHLORIDE 96 MMOL/L (99-107); CREATININE 0.88 MG/DL (0.40-0.90); GLUCOSE 86 MG/DL (70-104); POTASSIUM 3.3 MMOL/L (3.5-5.1); SODIUM 135 MMOL/L (135-145); TOTAL CARBON DIOXIDE 27.2 MMOL/L (24-32); TOTAL PROTEIN 6.5 G/DL (6.4-8.2); eGFR 65 ML/MIN
[2019-05-07 14:46] LABS: ETHANOL < 0.010 GM/DL (0.0-0.010)
[2019-05-07] MEDS ORDERED: potassium Cl 20 mEq SR tablet PO STA (14:54)
[2019-05-07] MEDS ORDERED: ATOR20TA66 PO (15:32)
[2019-05-07] MEDS ORDERED: ESCI5TAB PO (15:33)
[2019-05-07] MEDS ORDERED: TRAZ-251 PO (15:33)
--- NOTE | 2019-05-07 18:19 | NUR ---
Son took all belongings home.
--- NOTE | 2019-05-07 18:30 | NUR ---
URINE SENT TO LAB
[2019-05-07 19:02] LABS: CLARITY,URINE CLEAR (Clear); COLOR,URINE YELLOW (Yellow); GLUCOSE, URINE NEGATIVE (Neg); KETONES,URINE >=80 mg/dl (Neg); LEUKOCYTE ESTERASE ,URINE NEGATIVE (Neg); NITRITES, URINE NEGATIVE (Neg); OCCULT BLOOD,URINE NEGATIVE (Neg); PH,URINE 6.5 (4.8-8.0); PROTEIN,URINE NEGATIVE (Neg); UROBILINOGEN,URINE 0.2 E.U/dL (0.2-1.0)
[2019-05-07 19:08] LABS: UA COLLECTION TYPE CLN CATCH MIDSTREAM
[2019-05-07 19:12] LABS: URINE AMPHETAMINE SCREEN NEGATIVE (Neg); URINE BARBITUATE SCREEN NEGATIVE (Neg); URINE BENZODIAZEPINES SCREEN NEGATIVE (Neg); URINE CANNABINOID SCREEN NEGATIVE (Neg); URINE COCAINE SCREEN NEGATIVE (Neg); URINE METHADONE SCREEN NEGATIVE (Neg); URINE OPIATE SCREEN NEGATIVE (Neg); URINE PHENCYCLIDINE SCREEN NEGATIVE (Neg)
--- NOTE | 2019-05-07 19:15 | NUR ---
ALL OF PT BELONGING MINUS HER GLASSESS WENT HOME WITH PT SON AT BEDSIDE
--- NOTE | 2019-05-07 19:15 | NUR ---
MED REC SIGNED AND SENT TO PHARMACY
--- NOTE | 2019-05-07 19:19 | NUR ---
REPORT CALLED TO MAHESH POSADAS IN OVER FLOW
--- NOTE | 2019-05-07 19:21 | NUR ---
DIET ORDER ENTERED AND FAXED TO DIETARY PT REPORTS SHE IS PREFERS GLUTEN FREE DIET
[2019-05-07] MEDS: levetiracetam 250mg tablet PO SCH (20:08)
--- NOTE | 2019-05-07 20:29 | NUR ---
pt is sitting in bed, dinner tray was provided and pt c/o she doesnt like the food so she isnt eating. Pt c/o not having a straw. Pt c/o light and requests curtain to be partially closed. She is med compliant at med pass and is laying on her back quietly with eyes open rr even and unlabored.
[2019-05-07] MEDS ORDERED: traZODone 50mg tablet PO SCH (21:00)
--- NOTE | 2019-05-07 22:39 | NUR ---
pt is laying in bed resting quietly. She requested a couple more blankets because she is cold and blankets were provided. No other needs at this time.
--- NOTE | 2019-05-08 03:53 | NUR ---
Pt sleeping on her back rr even and unlabored no s/s distress.
--- NOTE | 2019-05-08 05:51 | NUR ---
pt is laying on her back resting comfortably. She was waken for am vitals. She was offered assistance to the bathroom and states she doesnt need to go. She is resting with her eyes closed. RR even and unlabored.
--- NOTE | 2019-05-08 06:44 | NUR ---
Patient is sleeping supine in bed. Respirations are even and unlabore.
[2019-05-08] MEDS ORDERED: aspirin 81mg tab.chew PO SCH (08:00)
[2019-05-08] MEDS ORDERED: ESCITALOPRAM OXALATE 5 MG TABLET PO SCH (08:00)
[2019-05-08] MEDS ORDERED: levoTHYROXINE 75mcg tablet PO SCH (08:00)
[2019-05-08] MEDS ORDERED: atorvastatin 20mg tablet PO SCH (08:00)
[2019-05-08] MEDS ORDERED: HYDROchlorothiazide 25mg tablet PO SCH (08:00)
[2019-05-08] MEDS: levetiracetam 250mg tablet PO SCH (08:12)
[2019-05-08] MEDS ORDERED: potassium Cl 20 mEq SR tablet PO STA (08:34)
--- NOTE | 2019-05-08 09:39 | NUR ---
PACKET SENT TO [facility]
--- NOTE | 2019-05-08 10:30 | NUR ---
Patient sleeping supine. No distress observed. Continue to monitor.
--- NOTE | 2019-05-08 12:16 | NUR ---
Patient sleeping on left side. No distress observed. Continue to monitor.
--- NOTE | 2019-05-08 12:30 | NUR ---
Break relief for primary nurse. Staff member phoned [facility] office and they reported one of their staff would come to the ED to complete an evaluation of the patient soon after lunch.
--- NOTE | 2019-05-08 13:41 | NUR ---
KRISTA Lee, evaluating patient. Continue to monitor.
--- NOTE | 2019-05-08 15:15 | NUR ---
Patient resting in bed. No distress observed. Continue to monitor.
--- NOTE | 2019-05-08 17:01 | NUR ---
Patient changing to sweats in her room. [facility], is not placing patient on a hold and patient's son is picking patient up to take her home.
[2019-05-08 17:37] VITALS: BP 116/70
== END 2019-05-08 18:25 | disposition home or self-care (01) ==
LOC: ER 13:41
DX: F79 Unspecified intellectual disabilities (principal); F41.9 Anxiety disorder, unspecified; F32.9 Major depressive disorder, single episode, unspecified; Z79.82 Long term (current) use of aspirin; Z79.899 Other long term (current) drug therapy
CPT/HCPCS: 36415; 80053; 80305; 80320; 81003; 84443; 85025; 99285